=== PATIENT | female | born 1980 | race Hispanic/Latino ===

== ENCOUNTER 2017-11-11 19:27 | Emergency (ER) | payer SELFPAY ==
[2017-11-11] MEDS ORDERED: DiphenhydrAMINE HCL 50 MG/ML VIAL ONE (19:50)
[2017-11-11] MEDS ORDERED: ONDANSETRON HCL 4 MG/2 ML VIAL ONE (19:50)
[2017-11-11] MEDS ORDERED: KETOROLAC TROMETHAMINE 30MG/ML ONE (19:51)
== END 2017-11-11 20:39 | disposition home or self-care (01) ==
LOC: EDH 19:27
DX: G43.909 Migraine, unspecified, not intractable, without status migrainosus (principal); R11.0 Nausea
CPT/HCPCS: 81025; 96374; 96375 ×2; 99284; J1200; J1885; J2405

== ENCOUNTER 2018-05-18 08:27 | Emergency (ER) | payer OTHER ==
[2018-05-18] MEDS ORDERED: DiphenhydrAMINE HCL 50 MG/ML VIAL ONE (10:08)
[2018-05-18] MEDS ORDERED: SODIUM CHLORIDE 0.9% 1000ML 1,000 ML IV ONE (10:08)
[2018-05-18] MEDS ORDERED: PROCHLORPERAZINE EDISYLATE 10 MG/2 ML VIAL ONE (10:09)
[2018-05-18 10:27] LABS: BASOPHILS % (AUTO) 0.8 % (0.0-5.0); EOSINOPHILS % (AUTO) 1.1 % (0.0-8.0); HEMATOCRIT 36.7 % (36-48); LYMPHOCYTES % (AUTO) 33.3 % (21.0-51.0); MEAN CORPUSCULAR HEMOGLOBIN 29.8 pg (27.0-33.0); MEAN CORPUSCULAR HGB CONC 33.9 g/dL (32.0-36.0); MEAN CORPUSCULAR VOLUME 87.9 fL (79-99); MONOCYTES % (AUTO) 5.1 % (3.0-13.0); NEUTROPHILS % (AUTO) 59.7 % (40.0-77.0); PLATELET COUNT (AUTO) 325 K/uL (130-400); RED BLOOD CELL COUNT(AUTO) 4.17 MIL/uL (4.00-5.50); RED CELL DISTRIBUTION WIDTH 13.2 % (11.0-15.5); WHITE BLOOD COUNT (AUTO) 6.4 K/uL (4.8-10.8)
[2018-05-18 10:56] LABS: CREATININE 0.7 mg/dL (0.5-1.5); POTASSIUM 3.5 mmol/L (3.5-5.1)
[2018-05-18 11:00] LABS: ALBUMIN 3.8 g/dL (3.5-5.0); BILIRUBIN,TOTAL 0.4 mg/dL (0.2-1.0); TOTAL PROTEIN, SERUM 8.1 g/dL (6.0-8.3)
== END 2018-05-18 11:30 | disposition home or self-care (01) ==
LOC: EDH 08:27
DX: G43.909 Migraine, unspecified, not intractable, without status migrainosus (principal)
CPT/HCPCS: 36415; 70450; 80053; 81025; 85025; 96374; 96375; 99284; J0780; J1200; J7030

== ENCOUNTER 2018-12-31 16:30 | Emergency (ER) | payer SELFPAY ==
[2018-12-31 16:59] LABS: EOSINOPHILS % (AUTO) 1.7 % (0.0-8.0); HEMATOCRIT 35.8 % (36-48); LYMPHOCYTES % (AUTO) 34.1 % (21.0-51.0); MEAN CORPUSCULAR HEMOGLOBIN 29.3 pg (27.0-33.0); MEAN CORPUSCULAR HGB CONC 33.1 g/dL (32.0-36.0); MEAN CORPUSCULAR VOLUME 88.4 fL (79-99); MONOCYTES % (AUTO) 4.6 % (3.0-13.0); NEUTROPHILS % (AUTO) 58.6 % (40.0-77.0); NUCLEATED RED BLOOD CELLS 0.2 % (0.0-0.19); PLATELET COUNT (AUTO) 333 K/uL (130-400); RED BLOOD CELL COUNT(AUTO) 4.05 MIL/uL (4.00-5.50); RED CELL DISTRIBUTION WIDTH 13.3 % (11.0-15.5); WHITE BLOOD COUNT (AUTO) 6.2 K/uL (4.8-10.8)
[2018-12-31 17:12] LABS: CREATININE 0.7 mg/dL (0.5-1.5); POTASSIUM 3.4 mmol/L (3.5-5.1)
[2018-12-31 17:15] LABS: INR 0.99 (0.85-1.15); PARTIAL THROMBOPLASTIN TIME 28.7 SEC (26.3-35.5); PROTHROMBIN TIME 10.4 SEC (9.6-11.6)
[2018-12-31 17:16] LABS: APPEARANCE,URINE Clear (CLEAR); BILIRUBIN,URINE Negative (NEGATIVE); COLOR,URINE Yellow (YELLOW); GLUCOSE, URINE (UA) Negative (NEGATIVE); KETONES,URINE Negative (NEGATIVE); LEUKOCYTE ESTERASE ,URINE Negative (NEGATIVE); NITRATE,URINE Negative (NEGATIVE); OCCULT BLOOD,URINE Moderate (NEGATIVE); PH,URINE 5.5 (5.0-8.0); PROTEIN,URINE Negative (NEGATIVE)
[2018-12-31 17:18] LABS: HCG,QUAL RESULT NEGATIVE (NEGATIVE)
[2018-12-31 17:19] LABS: ALBUMIN 3.7 g/dL (3.5-5.0); BILIRUBIN,TOTAL 0.2 mg/dL (0.2-1.0); TOTAL PROTEIN, SERUM 7.9 g/dL (6.0-8.3)
[2018-12-31 17:31] LABS: BACTERIA,URINE Few /HPF (None Seen); MUCUS,URINE Moderate LPF (None Seen); WBC,URINE 0-1 /HPF (0-1)
[2018-12-31 17:32] LABS: SQUAMOUS EPITHELIAL CELL,UR Few /HPF (0-2)
[2018-12-31] MEDS ORDERED: PREDNISONE 20 MG TABLET ONE (17:58)
[2018-12-31] MEDS ORDERED: IBUPROFEN 600 MG TABLET ONE (17:58)
== END 2018-12-31 19:22 | disposition home or self-care (01) ==
LOC: EDH 16:30
DX: M94.0 Chondrocostal junction syndrome [Tietze] (principal); G43.909 Migraine, unspecified, not intractable, without status migrainosus
CPT/HCPCS: 36415; 71046; 80053; 81001; 81003; 81025; 82550; 84484; 85025; 85378; 85610; 85730; 93005

== ENCOUNTER 2023-11-10 14:30 | Emergency (ER) | payer OTHER ==
[~2023-11-10] VITALS: Ht 160 cm; Wt 81.2 kg
[2023-11-10 14:52] VITALS: BP 121/93; PULSE 82; RESP 17; O2SAT 100
[2023-11-10] MEDS: ACETAMINOPHEN 500 MG TABLET PO ONE (15:15)
[2023-11-10 15:18] LABS: BASOPHILS # (AUTO) 0.04 K/uL (0.00-0.20); BASOPHILS % (AUTO) 0.7 % (0.0-5.0); EOSINOPHILS # (AUTO) 0.08 K/uL (0.00-0.70); EOSINOPHILS % (AUTO) 1.3 % (0.0-8.0); IMMATURE GRANULOCYTE ABSOLUTE 0.01 K/uL (0-1); LYMPHOCYTES # (AUTO) 1.9 K/uL (1.0-4.8); LYMPHOCYTES % (AUTO) 30.3 % (21.0-51.0); MEAN CORPUSCULAR HEMOGLOBIN 28.4 pg (27.0-33.0); MEAN CORPUSCULAR HGB CONC 32.9 g/dL (32.0-36.0); MEAN CORPUSCULAR VOLUME 86.4 fL (79-99); MONOCYTES # (AUTO) 0.3 K/uL (0.1-1.0); MONOCYTES % (AUTO) 5.4 % (3.0-13.0); NEUTROPHILS # (AUTO) 3.8 K/uL (1.8-7.7); NEUTROPHILS % (AUTO) 62.1 % (40.0-77.0); PLATELET COUNT (AUTO) 371 K/uL (130-400); RED BLOOD CELL COUNT(AUTO) 4.05 MIL/uL (4.00-5.50); RED CELL DISTRIBUTION WIDTH 13.5 % (11.0-15.5); WHITE BLOOD COUNT (AUTO) 6.1 K/uL (4.8-10.8)
[2023-11-10 15:28] LABS: CREATININE 0.7 mg/dL (0.5-1.0); POTASSIUM 3.8 mmol/L (3.5-5.1)
[2023-11-10 15:33] LABS: ALBUMIN 3.7 g/dL (3.5-5.0); BILIRUBIN,TOTAL 0.2 mg/dL (0.2-1.0); TOTAL PROTEIN, SERUM 7.8 g/dL (6.0-8.3)
== END 2023-11-10 17:06 | disposition home or self-care (01) ==
LOC: EDH 14:30
DX: R07.89 Other chest pain (principal); M79.602 Pain in left arm; G43.909 Migraine, unspecified, not intractable, without status migrainosus
CPT/HCPCS: 36415; 80053; 84484; 85025; 93005

== ENCOUNTER 2024-09-06 07:03 | Day surgery (SDC) | payer MEDICAID ==
[2024-09-02 12:05] LABS: BASOPHILS # (AUTO) 0.03 K/uL (0.00-0.20); BASOPHILS % (AUTO) 0.4 % (0.0-5.0); EOSINOPHILS # (AUTO) 0.12 K/uL (0.00-0.70); EOSINOPHILS % (AUTO) 1.8 % (0.0-8.0); HEMATOCRIT 34.3 % (36-48); IMMATURE GRANULOCYTE ABSOLUTE 0.01 K/uL (0-1); LYMPHOCYTES # (AUTO) 2.2 K/uL (1.0-4.8); LYMPHOCYTES % (AUTO) 32.1 % (21.0-51.0); MEAN CORPUSCULAR HEMOGLOBIN 28.1 pg (27.0-33.0); MEAN CORPUSCULAR HGB CONC 32.7 g/dL (32.0-36.0); MEAN CORPUSCULAR VOLUME 86.2 fL (79-99); MONOCYTES # (AUTO) 0.4 K/uL (0.1-1.0); MONOCYTES % (AUTO) 5.5 % (3.0-13.0); NEUTROPHILS # (AUTO) 4.1 K/uL (1.8-7.7); NEUTROPHILS % (AUTO) 60.1 % (40.0-77.0); PLATELET COUNT (AUTO) 339 K/uL (130-400); RED BLOOD CELL COUNT(AUTO) 3.98 MIL/uL (4.00-5.50); RED CELL DISTRIBUTION WIDTH 14.2 % (11.0-15.5); WHITE BLOOD COUNT (AUTO) 6.8 K/uL (4.8-10.8)
[2024-09-02 12:10] VITALS: BP 133/82; PULSE 77; RESP 15; TEMP 97.9
[2024-09-06] VITALS (10 sets, daily range): BP systolic 110–134; BP diastolic 69–94; PULSE 59–89; RESP 15–18; TEMP 97–97.9
[~2024-09-06] VITALS: Ht 160 cm; Wt 86.9 kg
[~2024-09-06 07:03] MED LIST: RIZA10TA41 PO
[2024-09-06] MEDS ORDERED: ceFAZolin SODIUM 2 GM VIAL ONE (07:37)
[2024-09-06] MEDS ORDERED: LACTATED RINGERS 1000ML 1,000 ML IV ONE (07:37)
[2024-09-06] MEDS ORDERED: BUPIvacaine/PF 0.25% 30ML VIAL IJ ONE (07:40)
[2024-09-06] MEDS ORDERED: MIDAZOLAM HCL 1 MG/ML 2ML VIAL ONE (08:24)
[2024-09-06] MEDS ORDERED: FENTanyl CITRate PF 50 MCG/1 ML 2ML VIAL ONE (08:25)
[2024-09-06] MEDS ORDERED: ondanSETRON 4MG INJ ONE (08:29)
[2024-09-06] MEDS ORDERED: LIDOCAINE HCL 1% 10 ML VIAL ONE (08:29)
[2024-09-06] MEDS ORDERED: dexaMETHasone SOD PHOSPHATE 4 MG/ML 1ML VIAL ONE (08:29)
[2024-09-06] MEDS ORDERED: LIDOCAINE HCL 1% 20 ML VIAL ONE (08:30)
[2024-09-06] MEDS: LIDOCAINE HCL 1% 20 ML VIAL MISC ONE (08:40)
--- NOTE | 2024-09-06 11:33 | OP ---
Operative Note: DATE OF PROCEDURE: 09/06/24 SURGEON: BORA LEE MD AERIAL PLANTING AND CULTIVATION MANAGER: [] ANESTHESIA: [] Mac with local ANESTHESIOLOGIST/LACQUER PIN PRESS OPERATOR: [] PREOPERATIVE DIAGNOSIS: [] Right hand ganglion cyst POSTOPERATIVE DIAGNOSIS: [] The same SYNOPSIS: [] PROCEDURE: [] Excision of the right hand ganglion cyst ESTIMATED BLOOD LOSS: [] None INDICATIONS: [] DESCRIPTION OF PROCEDURE: [] With the patient and conscious sedation I placed about 5 cc of a lidocaine over the dorsal aspect of the right hand. I make a small incision of about 4 cm and a ganglion cyst was identified and was dissected with sharp and blunt dissection. The cyst was about 3 cm in diameter. I dissected and excised that and I suture some bleeding points with a 3-0 Vicryl. After adequate anesthesia I approximated subcutaneous tissue with a 4-0 Vicryl and the skin was closed with 4-0 nylon interrupted. I placed 5 cc of Marcaine to the area. No complications BORA LEE MD Sep 06, 2024 11:33
== END 2024-09-06 10:20 | disposition home or self-care (01) ==
LOC: DAH 07:03
PROVIDERS: ATTEND Surgery
DX: M67.442 Ganglion, left hand (principal); M67.441 Ganglion, right hand; G43.909 Migraine, unspecified, not intractable, without status migrainosus; Z98.51 Tubal ligation status; E66.9 Obesity, unspecified; Z68.32 Body mass index [BMI] 32.0-32.9, adult
CPT/HCPCS: 85025; 36415; 26160; 88304; A6260; J1100; A4663; J7120 ×2; J3010; J0665; J2250; J2405; J3490; J0690 ×2; A4649; A4215; A4213; A4222; A4221; A4216; A4450; A4223 ×2